=== PATIENT | female | born 1970 | race Caucasian/White ===

== ENCOUNTER 2017-07-27 05:50 | Day surgery (SDC) | payer BC ==
[2017-07-26 11:02] VITALS: BMI 37.9
[2017-07-27] MEDS ORDERED: Bupivacaine HCl 0.5%/Epinephrine 1:200,000/PF 30 ml Vial ONE (06:23)
[2017-07-27] MEDS ORDERED: Fentanyl 250 MCG/5 ML VIAL ONE ×3 (06:30→11:58)
[2017-07-27 06:40] LABS: Mean Corpuscular HGB CONC 32.9 g/dL (32.0-36.0); Mean Corpuscular Hemoglobin 28.9 pg (27.0-31.0); Mean Corpuscular Volume 87.8 fl (81.0-99.0); Mean Platelet Volume 6.6 fL (7.4-10.4); Platelet Count 245 thou/uL (130-400); Red Blood Cell (RBC) Count 4.49 mill/uL (4.20-5.40); White Blood Cell (WBC) Count 5.4 thou/uL (4.8-10.8)
[2017-07-27] MEDS ORDERED: CEFAZOLIN/Water 2 GM/20 ML SYRINGE ONE (06:42)
[2017-07-27] MEDS ORDERED: Thrombin 5000 UNITS/5 ML VIAL ONE (06:44)
[2017-07-27] MEDS ORDERED: Calcium Chloride 1 GM/10 ML Abboject SYRINGE ONE (06:44)
[2017-07-27 06:47] LABS: BHCG - Serum Negative (NEGATIVE); Pregs Control Background? CLEAR/WHITE (CLR/WHITE); Pregs Control Bar Appear? YES (CONTROL BAR)
[2017-07-27] MEDS ORDERED: Midazolam HCl 2 mg/2 ml Vial ONE ×2 (06:59→07:02)
[2017-07-27 07:33] LABS: Bilirubin Negative (Negative); Blood, Urine Negative (Negative); Clarity CLEAR (Clear); Glucose, Urine (Dipstick) Negative (Negative); Leukocyte Negative (Negative); Nitrite Negative (Negative); Protein, Urine (Dipstick) Negative (Neg-Trace); Specific Gravity, Urine 1.019 (1.002-1.036); Urobilinogen 0.2 mg/dL (0.2-1.0)
[2017-07-27 07:35] LABS: Bacteria/HPF 1+ HPF (None Seen); Hyaline Casts/LPF 0-3 HYALINE CAST LPF (0-3 Hyaline); Pathc Cast-AUWi Flag 0.13 (0-2.49); RBC/HPF 0-3 HPF (0-3); WBC/HPF 0-3 HPF (0-3)
[2017-07-27] MEDS ORDERED: Meperidine HCl/PF 25 MG/ML VIAL SLOW IVP PRN (11:37)
[2017-07-27] MEDS ORDERED: Ondansetron HCl/PF 4 MG/2 ML Vial IVP PRN ×2 (11:37→12:02)
[2017-07-27] MEDS ORDERED: Promethazine HCl 25 MG/ML VIAL SLOW IVP PRN (11:37)
[2017-07-27] MEDS ORDERED: Promethazine HCl 25 MG/ML VIAL IM PRN (12:02)
[2017-07-27] MEDS ORDERED: Simethicone Chewable 80 MG TAB PO PRN (12:02)
[2017-07-27] MEDS ORDERED: HYDROcodone/Acetaminophen 5/325 mg Tablet PO PRN (12:02)
[2017-07-27] MEDS ORDERED: diphenhydrAMINE 25 MG CAP PO PRN (12:02)
[2017-07-27] MEDS ORDERED: Morphine 5 MG/ML SYRINGE SLOW IVP PRN (14:00)
[2017-07-27] MEDS: Sodium Chloride 0.9% 1,000 ML IV SCH (14:02)
[2017-07-27] MEDS: HYDROcodone/Acetaminophen 5/325 mg Tablet PO PRN ×3 (14:22→22:05)
[2017-07-27] MEDS ORDERED: Glycopyrrolate 0.2 MG/ML 5 ML SYRINGE ONE (15:04)
[2017-07-27] MEDS ORDERED: ePHEDrine/0.9% NaCl/PF SYRINGE 50 mg/10 ml ONE (15:04)
[2017-07-27] MEDS ORDERED: Lidocaine 1% PF 5 ML VIAL ONE (15:04)
[2017-07-27] MEDS ORDERED: Ketorolac Tromethamine 30 MG/ML VIAL ONE (15:04)
[2017-07-27] MEDS ORDERED: Dexamethasone 20 MG/5 ML VIAL ONE (15:04)
[2017-07-27] MEDS ORDERED: Propofol 200 MG/20 ML VIAL ONE (15:04)
[2017-07-27] MEDS: Ketorolac Tromethamine 30 MG/ML VIAL IVP SCH (17:59)
[2017-07-28] MEDS: Ketorolac Tromethamine 30 MG/ML VIAL IVP SCH ×2 (01:37→05:46)
[2017-07-28] MEDS: HYDROcodone/Acetaminophen 5/325 mg Tablet PO PRN ×2 (01:43→05:59)
[2017-07-28] MEDS: Sodium Chloride 0.9% 1,000 ML IV SCH ×2 (02:36→06:48)
[2017-07-28 06:01] LABS: Hemoglobin 11.4 g/dL (12.0-16.0); Mean Corpuscular HGB CONC 32.4 g/dL (32.0-36.0); Mean Corpuscular Hemoglobin 28.2 pg (27.0-31.0); Mean Corpuscular Volume 87.1 fl (81.0-99.0); Mean Platelet Volume 6.4 fL (7.4-10.4); Platelet Count 240 thou/uL (130-400); RBC Distribution Width 12.1 % (11.5-14.5); Red Blood Cell (RBC) Count 4.06 mill/uL (4.20-5.40); White Blood Cell (WBC) Count 10.9 thou/uL (4.8-10.8)
[2017-07-28 08:10] VITALS: BP 109/66; TEMP 98.2
--- NOTE | 2017-07-29 15:21 | OP ---
DATE OF PROCEDURE: 07/27/2017 PREOPERATIVE DIAGNOSES: 1. A 47-year-old female with a history of menorrhagia. 2. Dysmenorrhea. 3. Fibroid uterus. POSTOPERATIVE DIAGNOSES: 1. A 47-year-old female with a history of menorrhagia. 2. Dysmenorrhea. 3. Fibroid uterus. SURGEON: Dr. Peyton Barbosa RESIDENTIAL PLUMBER: Not applicable. PROCEDURE: 1. Robotic total laparoscopic hysterectomy. 2. Bilateral salpingectomy. 3. Left ovarian cystectomy. 4. Plasmax and fusion. SPECIMENS: Uterus, tubes and cervix in a separate piece. ESTIMATED BLOOD LOSS: 200 mL. ANESTHESIA: General. INTRAVENOUS FLUIDS: Crystalloid. CLINICAL HISTORY: This patient is a 47-year-old female who presented for her annual exam, but noted that she had heavy and painful periods for many years which was disruptive to her lifestyle. She was evaluated by her general well woman exam, but also had an ultrasound which showed an enlarged uterus with fibroids present. It was discussed with the patient that the reason for her bleeding was most likely secondary to the fibroids and potential adenomyosis. The patient was offered conservative versus surgical management and she chose surgical management with removal of the uterus and tubes. The patient did not have any concerns for ovarian pathology and had not yet transitioned into menopause. A discussion was ensued that entailed removal of ovaries only if they were significantly diseased. The risks, benefits and possible complications were discussed and the procedure was scheduled. DETAILS OF PROCEDURE: The patient was taken to the operating room where general anesthesia was obtained, she was laid in the supine position with her legs in the [place] stirrups. She was prepped and draped in usual sterile fashion. A weighted speculum was placed into the vagina, the vagina was deep and cavernous. The Hyman catheter was placed and a lateral retractor was used to visualize the cervix. The anterior lip of the cervix was grasped and a circumferential suture was placed for securing the uterine manipulator. Once the manipulator was placed with some difficulty due to the length of the vagina and secured, the attention was then turned to the abdomen where an incision was made in the lower umbilical border and a direct view 5 mm scope was used to enter the abdomen. Once the abdomen was breeched, insufflation was performed and the underlying structures were surveyed for any damage. After none noted, a general survey of the pelvis was performed which noted some omental adhesions , but were able to maneuver around these adhesions by manipulation of the trocar. Once this was performed, the accessory ports were made under direct visualization by making an incision and using counter traction to enter the peritoneal cavity with the 8 mm trocar. This was performed on the left and the right side. Once those trocars were placed the assistance port was then placed in the right lower quadrant below the accessory port with an 11 mm trocar. The umbilical incision was then adjusted to accommodate the 12 mm trocar. The 5 mm was removed and the 12 mm was placed. The robot was then docked and the robotic arms were placed. The spatula and the bipolar ligating clamp was used to perform the remainder of the procedure. The adnexal structures were identified and so the surgery started on the left. The assistant strength coach grasped the fimbriated end and the mesosalpinx was desiccated between the ovary and the tube. Once the spatula was used to sever the salpinx towards the uterus, the IP was then grasped and after identifying the location of the ureters, which were well below, the IP was cauterized and ligated retracting the ovarian pedicle out to the left body wall. It was noted that there was a large ovarian cyst on the left ovary. This was cauterized with the spatula and bleeding was corrected, which was noted to be minimal. The bladder flap was then created by opening the avascular space on the left adnexa and carrying this down anteriorly opening the broad ligament. The posterior leaf was then taken down towards the uterosacrals and skeletonizing the uterine vasculature. This surgery was complicated by difficulty with uterine manipulation. The uterine manipulator seem to never appropriately position itself in the uterus which made the surgery difficult. The attention was turned to the opposite side on the right where the adnexal structures were identified. The mesosalpinx was cauterized and the fallopian tube was released towards the uterine body. In similar fashion, the ureter on this side was identified and noted to be low beneath the infundibulopelvic vasculatures structures. These were ligated with cautery and released. The broad ligament was opened and the bladder flap was created anteriorly skeletonizing the uterine vessels. The uterine vessels were then ligated with the bipolar clamp, ligating the vasculature on the right side and further developing the cervical vaginal cuff area. Once the vasculature was ligated on the right side, the left side was then completed as well and the attempt for the circumferential colpotomy was performed. However, it was noted that the cervix was extremely long and the vaginal cuff was well below. Due to the large fibroid uterus and difficulty with manipulation, the uterus body was severed at the cervix where the original incision was made for the colpotomy and the uterus was placed upwards in the abdomen away from the area of interest. A single-tooth tenaculum was used by the assistant strength coach to grasp the cervical stump and further dissection lower making sure the ureters were well out of the way was performed. This allowed for entrance into the vaginal opening. A circumferential incision was made around the cervix and the cervix was released. The uterus and cervix was pulled down into the vagina allowing for maintenance of the insufflation and the vaginal cuff was closed in a running fashion with the self-locking suture. Once the vagina was closed, copious irrigation in the abdomen was performed. The plasmax solution was then spread around all the denuded areas including the ovarian pedicles and the abdomen was released from the trocars under direct visualization and the abdomen was deflated of the CO2 gas. The port sites were closed with a deep closure for the 11 and 12 mm port sites with a UR needle closing the fascial defect. The integrity of this was tested with the surgeon's finger. Then, the skin was closed with a 4-0 Monocryl and Steri-Strips and Mastisol were placed over these incisions with a Band-Aid over the 3 port sites. The camera site where the umbilicus was placed, a cotton gauze was placed in the umbilical depression and a Tegaderm was placed over this. The attention was then placed down below where the uterus, cervix and another remnant was removed from the vagina. The vagina was cleaned and noted to be intact from the vaginal side. The Hyman catheter was left and the patient was sent to the recovery room once all needle, sponge, lap, and instrument counts were correct x2 at the end of the procedure. There were no other issues surrounding this surgery. MARC
[2017-08-01] MEDS ORDERED: Ibuprofen 800 MG TAB PO SCH (22:00)
== END 2017-07-28 10:08 | disposition home or self-care (01) ==
LOC: SDC 05:50 → EDSTATUS 09:32 → 3SE 12:00 → SDC 07-28 10:08
PROVIDERS: ATTEND Obstetrics & Gynecology
PROC: 0UT74ZZ Resection of Bilateral Fallopian Tubes, Percutaneous Endoscopic Approach (ICD-10-PCS; principal; 2017-07-28)
PROC: 0UT94ZZ Resection of Uterus, Percutaneous Endoscopic Approach (ICD-10-PCS; principal; 2017-07-28)
PROC: 0UB18ZZ Excision of Left Ovary, Via Natural or Artificial Opening Endoscopic (ICD-10-PCS; principal; 2017-07-28)
DX: N84.0 Polyp of corpus uteri (principal); N83.8 Other noninflammatory disorders of ovary, fallopian tube and broad ligament; F41.9 Anxiety disorder, unspecified; Z99.89 Dependence on other enabling machines and devices; Z79.899 Other long term (current) drug therapy; Z98.891 History of uterine scar from previous surgery
CPT/HCPCS: 36415; 81001; 84703; 85027; 88307; 96374; J2270; J0131; J0670; J1100; J1885; J2001; J2250; J2704; J3010

== ENCOUNTER 2017-09-08 07:48 | Outpatient (CLI) | payer BC | END 2017-09-08 07:49 | disposition home or self-care (01) | LOC: BICMAMMO 07:48 | PROVIDERS: ATTEND Obstetrics & Gynecology | DX: Z12.31 Encounter for screening mammogram for malignant neoplasm of breast (principal); R92.1 Mammographic calcification found on diagnostic imaging of breast | CPT/HCPCS: 77063; 77067 ==

== ENCOUNTER 2018-09-09 08:29 | Outpatient (CLI) | payer BC ==
--- NOTE | 2018-09-09 10:08 | MMO ---
Bilateral MAMMO Bilat Screen [facility]. CLINICAL HISTORY: Patient is 48 years old and is seen for screening. The patient has no family history of breast cancer. The patient has no personal history of cancer. VIEWS: The views performed were: bilateral craniocaudal with tomosynthesis and bilateral mediolateral oblique with tomosynthesis. FILMS COMPARED: The present examination has been compared to prior imaging studies performed at [facility] on 09/27/2009, 02/18/2012, 06/02/2016 and 09/08/2017. MAMMOGRAM FINDINGS: There are scattered fibroglandular densities. There are no suspicious masses, suspicious calcifications, or new areas of architectural distortion. IMPRESSION: THERE IS NO MAMMOGRAPHIC EVIDENCE OF MALIGNANCY. A ROUTINE FOLLOW-UP MAMMOGRAM IN 1 YEAR IS RECOMMENDED. THE RESULTS OF THIS EXAM WERE SENT TO THE PATIENT. ACR BI-RADS Category 1 - Negative MAMMOGRAPHY NOTE: 1. A negative mammogram report should not delay a biopsy if a dominant of clinically suspicious mass is present. 2. Approximately 10% to 15% of breast cancers are not detected by mammography. 3. Adenosis and dense breasts may obscure an underlying neoplasm.
== END 2018-09-09 08:30 | disposition home or self-care (01) ==
LOC: BICMAMMO 08:29
PROVIDERS: ATTEND Obstetrics & Gynecology
DX: Z12.31 Encounter for screening mammogram for malignant neoplasm of breast (principal)
CPT/HCPCS: 77063; 77067

== ENCOUNTER 2019-09-12 14:33 | Outpatient (CLI) | payer BC ==
--- NOTE | 2019-09-13 08:58 | MMO ---
Bilateral MAMMO Bilat Screen [facility]. CLINICAL HISTORY: Patient is 49 years old and is seen for screening. The patient has no family history of breast cancer. The patient has no personal history of cancer. VIEWS: The views performed were: bilateral craniocaudal with tomosynthesis and bilateral mediolateral oblique with tomosynthesis. FILMS COMPARED: The present examination has been compared to prior imaging studies performed at [facility] on 02/18/2012, 06/02/2016, 09/08/2017 and 09/09/2018. This study has been interpreted with the assistance of computer-aided detection. MAMMOGRAM FINDINGS: There are scattered fibroglandular densities. There are no suspicious masses, suspicious calcifications, or new areas of architectural distortion. IMPRESSION: THERE IS NO MAMMOGRAPHIC EVIDENCE OF MALIGNANCY. A ROUTINE FOLLOW-UP MAMMOGRAM IN 1 YEAR IS RECOMMENDED. THE RESULTS OF THIS EXAM WERE SENT TO THE PATIENT. ACR BI-RADS Category 1 - Negative MAMMOGRAPHY NOTE: 1. A negative mammogram report should not delay a biopsy if a dominant of clinically suspicious mass is present. 2. Approximately 10% to 15% of breast cancers are not detected by mammography. 3. Adenosis and dense breasts may obscure an underlying neoplasm. Reported by: SANYA SINGER MD Electonically Signed: [id number]
== END 2019-09-12 14:34 | disposition home or self-care (01) ==
LOC: BICMAMMO 14:33
PROVIDERS: ATTEND Internal Medicine
DX: Z12.31 Encounter for screening mammogram for malignant neoplasm of breast (principal)
CPT/HCPCS: 77063; 77067

== ENCOUNTER 2020-10-04 10:11 | Outpatient (CLI) | payer BC | END 2020-10-04 10:12 | disposition home or self-care (01) | LOC: BICMAMMO 10:11 | PROVIDERS: ATTEND Internal Medicine | DX: Z12.31 Encounter for screening mammogram for malignant neoplasm of breast (principal) | CPT/HCPCS: 77063; 77067 ==

== ENCOUNTER 2023-04-08 15:00 | Outpatient (CLI) | payer BC | END 2023-04-08 15:01 | disposition home or self-care (01) | LOC: BICMAMMO 15:00 | PROVIDERS: ATTEND Internal Medicine | DX: Z12.31 Encounter for screening mammogram for malignant neoplasm of breast (principal) | CPT/HCPCS: 77063; 77067 ==